=== PATIENT | male | born 1950 | race Caucasian/White ===

== ENCOUNTER 2021-09-27 15:13 | Emergency (ER) | payer MEDICARE, SELFPAY ==
--- NOTE | 2021-09-27 15:17 | ED.SKABFB ---
HPI - Skin/Abscess/Foreign Bdy General Chief complaint: Skin/Abscess/Foreign Body Stated complaint: Infected Thumb Time Seen by Provider: 09/27/21 15:17 Source: patient and RN notes reviewed History of Present Illness HPI narrative: Patient is a 71-year-old male who presents the urgent care with complaints of infection on the left thumb. Patient states that it has been there for approximately 1 week and he was started on Bactrim and Bactroban on the by his primary care doctor. Patient states that the pain has subsided slightly and he has become just slightly nauseous with the antibiotics. Patient has not been eating with the antibiotics. Denies of any fever, chills. No other acute complaints. No acute distress noted. Patient read the plan of care. Some parts of this dictation were generated by voice recognition software and may contain typographical and/or grammatical inaccuracies. Related Data Home Medications Medication Instructions Recorded Confirmed atorvastatin 20 mg PO DAILY 09/27/21 09/27/21 indapamide 2.5 mg PO DAILY 09/27/21 09/27/21 losartan 100 mg PO DAILY 09/27/21 09/27/21 mupirocin 1 applic TOPICAL TID 09/27/21 09/27/21 sulfamethoxazole-trimethoprim 1 tablet PO BID 09/27/21 09/27/21 Allergies Allergy/AdvReac Type Severity Reaction Status Date / Time No Known Allergies Allergy Verified 09/27/21 15:44 Review of Systems Review of Systems: CONSTITUTIONAL: Denies fever, chills, or sweats. EYES: Denies visual changes, redness, or discharge. ENT: Denies rhinorrhea, congestion, sore throat, or otalgia. CARDIOVASCULAR: Denies chest pain, palpitations, or edema. RESPIRATORY: Denies cough or dyspnea. GASTROINTESTINAL: Denies abdominal pain, nausea, vomiting, or diarrhea. GENITOURINARY: Denies dysuria or hematuria. SKIN: Reports of a sore to the left thumb MUSCULOSKELETAL: Denies back pain, joint pain, or myalgia. NEUROLOGIC: Denies headache, numbness, or weakness. All other systems reviewed are negative, except as documented in HPI. PMFSH Comments At the time of my signature, I reviewed and agree with the nursing past medical, surgical, social, and family history. There is no relevant family history pertinent to the patient complaint. Exam Narrative: GENERAL: This is a well-nourished, well-developed patient, in no apparent distress. HEAD: normocephalic, atraumatic. EYES: PERRL. Sclera clear/white. Vision is grossly intact. EARS: External ears normali NOSE: External nose normal with no obvious nasal discharge, nares without redness, no rhinorrhea. THROAT: Mucous membranes moist NECK: Neck supple SKIN: Moderate paronychia to the ulnar aspect of the left thumb with mild surrounding erythema. Warm, intact with no suspicious lesions or rash, good texture and turgor. NEURO: awake, alert, and oriented to person, place and time. There were no obvious focal neurologic abnormalities. EXTREMITIES: No clubbing, cyanosis, or edema. Positive strong left radial pulse with capillary refill less than 2 seconds Course Course Level of Care: Express Care Visit Vital Signs Vital signs: Vital Signs Temperature 98.4 F 09/27/21 15:29 Pulse Rate 90 09/27/21 15:29 Respiratory Rate 16 09/27/21 15:29 Blood Pressure 146/95 H 09/27/21 15:29 Pulse Oximetry 100 09/27/21 15:29 Temperature 98.4 F 09/27/21 15:29 Pulse Rate 90 09/27/21 15:29 Respiratory Rate 16 09/27/21 15:29 Blood Pressure 146/95 H 09/27/21 15:29 Pulse Oximetry 100 09/27/21 15:29 Reviewed-patient is informed that they may have pre-hypertension or hypertension based on a blood pressure reading in the department. I recommend the patient call the primary care provider listed on their discharge instructions or a physician of their choice this week to arrange follow-up for further evaluation of possible pre-hypertension or hypertension. Procedures Other Procedure Procedure 1: Other Procedure: Left thumb paronychia cleansed wit
[2021-09-27 15:29] VITALS: BP 146/95; PULSE 90; RESP 16; TEMP 36.9; O2SAT 100
== END 2021-09-27 15:52 | disposition home or self-care (01) ==
PROVIDERS: Emergency Provider Nurse Practitioner Family
DX: L03.012 Cellulitis of left finger (principal); E78.00 Pure hypercholesterolemia, unspecified; I10 Essential (primary) hypertension
CPT/HCPCS: 10060; 99202; G0463